=== PATIENT | male | born 1940 | race Caucasian/White ===

== ENCOUNTER 2020-05-08 13:22 | Outpatient (RCR) | payer OTHER, SELFPAY | END 2020-05-08 23:59 | LOC: IMMUN 13:22 | PROVIDERS: PCP Dentist; Visit Provider Family Medicine | DX: Z23 Encounter for immunization (principal) | CPT/HCPCS: 0011A; 0012A ==

== ENCOUNTER 2020-06-08 18:00 | Emergency (ER) | payer OTHER, SELFPAY ==
[2020-06-08 18:01] VITALS: BP 133/75; PULSE 70; RESP 16; TEMP 36.4; O2SAT 98; BMI 25.0
--- NOTE | 2020-06-08 20:19 | ED.DCSUM_ITS ---
- ER Visit Summary Date of Service: 06/08/20 Chief Complaint: Catheter problems History of Present Illness: The patient is a 79 M who had a prostate procedure earlier today at the [facility] by Dr. Crawford. This was a steam injection treatment for an enlarged prostate. He had a catheter placed and is planning to have it removed on Friday. He was having the urge to pee and he subsequently had some leakage around his catheter site. He noticed a small amount of clots in his urine. He is not on blood thinners. Physical Examination: Vital signs unremarkable. Abdomen is soft and nontender. Catheter in place. Urine is blush colored with 2 tiny clots. Test Results: None performed Emergency Department Course and Treatment: Bladder irrigation was performed by nursing. He had some intermittent urine return with small clots, blush colored. He was having intermittent urges to urinate but no significant pain. I attempted to contact his urologist. We tried multiple times. The hospital paged him directly. At this time, I have still not heard back. On reevaluation, the patient is comfortable. He is having no leakage. His catheter appears to be draining. Urine is blush colored but there are no s ignificant clots. He is not having any significant pain. He feels the intermittent urge to urinate. I suspect he is having bladder spasms. We will treat with B&O suppositories. Patient was advised to follow-up with his urologist. Call in the morning. If he has significant pain, bleeding, or no urinary flow, he should return to the ED. Treatment Plan: As above Disposition: Discharge Impression: Attention to [place] catheter This note was generated with [employer] dictation software. It may contain incorrect words, spelling, and punctuation that were not noted in review of the chart prior to signing ED Disposition - Plan for ED Patient: Referrals: Devon Delatorre MD [Primary Care Provider] -
--- NOTE | 2020-06-08 20:23 | ED.DEP ---
ED Disposition - Plan for ED Patient: Instructions: Caring for Your Indwelling Urinary Catheter Prescriptions: Opium/Belladonna Alkaloids [Belladonna-Opium 16.2-60 Supp] 1 each RC Q12H 3 Days #6 supp.rect Prescription Printed
[2020-06-08 20:50] VITALS: BP 159/72; PULSE 64; RESP 16; O2SAT 98
== END 2020-06-08 21:20 | disposition home or self-care (01) ==
PROVIDERS: Emergency Provider Emergency Medicine; PCP Family Medicine
DX: T83.098A Other mechanical complication of other urinary catheter, initial encounter (principal)
CPT/HCPCS: 99282